=== PATIENT | female | born 1960 | race Two or more races ===

== ENCOUNTER → 2024-08-19 | Outpatient (CLI) | payer OTHER, SELFPAY ==
--- NOTE | 2024-08-19 09:29 | XR_ITS ---
Examination: Right knee 2 views TECHNIQUE: AP lateral right knee 2 views, standing Exam date and time: August 19, 2024 0952 hours indications: Right knee swelling and pain one month FINDINGS: Moderate osteopenia. No fracture or dislocation Mild tricompartment osteoarthritis No opaque foreign body no ossified joint bodies IMPRESSION: Mild tricompartment osteoarthritis
[2024-08-19 10:44] LABS: Basophils # (Auto) 0.1 Thou/mm3 (0.0-0.2); Basophils % (Auto) 1 % (0-2.5); Eosinophils # (Auto) 0.3 Thou/mm3 (0.0-0.5); Eosinophils % (Auto) 4 % (0-10); Hematocrit 40.7 % (36.0-46.0); Hemoglobin 13.4 g/dL (12.0-16.0); Immature Granulocytes % (Auto) 0 % (0-0); Immature Granulocytes Auto 0.01 Thou/mm3 (0.00-0.00); Lymphocytes % (Auto) 29 % (10-50); Mean Corpuscular HGB Conc 32.9 g/dl (31.0-37.0); Mean Corpuscular Hemoglobin 29.6 pg (25.0-35.0); Mean Corpuscular Volume 90 fL (80-100); Monocytes # (Auto) 0.4 Thou/mm3 (0.0-0.8); Monocytes % (Auto) 6 % (0-12); Neutrophils % (Auto) 60 % (37-80); Nucleated Red Blood Cell % 0 /100 WBC (0); Platelet Count 334 Thou/mm3 (140-440); RDW Standard Deviation 42.2 fL (36.4-46.3); Red Blood Count 4.52 Miln/mm3 (4.00-5.20); White Blood Count 6.7 Thou/mm3 (3.6-11.0)
[2024-08-19 11:00] LABS: Glucose Estimated Average 126 mg/dL (80-131)
[2024-08-19 11:03] LABS: Collection Type, Urine Clean Catch
[2024-08-19 11:14] LABS: Vitamin B12 694 pg/mL (211-911); Vitamin D 25 Hydroxy Total 66.6 ng/mL (7.3-40.2)
[2024-08-19 11:18] LABS: Alanine Aminotransferase 14 U/L (10-49); Albumin, Serum 4.4 gm/dL (3.4-4.8); Albumin/Globulin Ratio 1.9 (1.2-2.2); Alkaline Phosphatase 101 U/L (46-116); Anion Gap 7 (7-16); Aspartate Amino Transferase 15 U/L (0-34); BUN/Creatinine Ratio 17 Ratio (12-20); Bilirubin,Total 0.6 mg/dL (0.3-1.2); Blood Urea Nitrogen 12 mg/dL (9-23); Calcium 9.4 mg/dL (8.3-10.6); Calcium (Corrected) 9.4 mg/dL (8.5-10.1); Carbon Dioxide 29.8 mMol/L (20.0-31.0); Cardiac Risk Estimate 2.9 RATIO (3.7-5.6); Chloride 106 mMol/L (98-107); Cholesterol 194 mg/dL (132-200); Creatinine (Component) 0.7 mg/dL (0.6-1.3); Globulin 2.3 gm/dL (2.3-3.5); Glucose 124 mg/dL (74-106); HDL Cholesterol 68 mg/dL (40-60); LDL Cholesterol,Calculated 111 mg/dL (0-130); Osmolality,Calculated 285 (275-295); Potassium 4.3 mMol/L (3.4-5.1); Sodium 143 mMol/L (136-145); Thyroid Stimulating Hormone 0.86 uIU/mL (0.55-4.78); Total Protein 6.7 gm/dL (5.7-8.2); Triglycerides 76 mg/dL (30-150); eGFR > 60 See Note
[2024-08-19 11:42] LABS: Bilirubin,Urine Negative (Negative); Blood,Urine Negative (Negative); Clarity,Urine Clear (Clear/Hazy); Color,Urine Colorless (Lt Yel-Yel); Culture Indicated,Urine Not Indicated; Glucose, Urine Negative (Negative); Ketones,Urine Negative (Negative); Leukocyte Esterase,Urine Negative (Negative); Nitrite,Urine Negative (Negative); Protein,Urine Negative (Neg - Trace); RBC,Urine 2 /hpf (0-3); Specific Gravity,Urine 1.007 (1.001-1.035); Squamous Epithelial Cell,Urine < 1 /hpf (0-5); Urobilinogen,Urine Negative mg/dL (0.0-1.0); WBC,Urine < 1 /hpf (0-5)
[2024-08-19 11:44] LABS: Creatinine MALB Rnd Ur 28 mg/dL (30-125); Microalbumin, Random Urine < 3 mg/L (0-300)
== END | disposition home or self-care (01) ==
LOC: COPL 09:13
PROVIDERS: PCP Physician Assistant; Referring Provider Orthopaedic Surgery; Visit Provider Radiology Diagnostic Radiology
DX: M17.11 Unilateral primary osteoarthritis, right knee (principal); Z00.00 Encounter for general adult medical examination without abnormal findings; I10 Essential (primary) hypertension; E78.5 Hyperlipidemia, unspecified; E55.9 Vitamin D deficiency, unspecified; D51.9 Vitamin B12 deficiency anemia, unspecified; R73.01 Impaired fasting glucose
CPT/HCPCS: 36415; 73560; 80053; 80061; 81001; 82043; 82306; 82570; 82607; 83036; 84443; 85025

== ENCOUNTER → 2024-12-24 | Outpatient (CLI) | payer OTHER, SELFPAY ==
[2024-12-24 10:47] LABS: Glucose Estimated Average 126 mg/dL (80-131); Hemoglobin A1C 6.0 % Hgb (4.8-6.0)
[2024-12-24 11:04] LABS: Alanine Aminotransferase 18 U/L (10-49); Albumin, Serum 4.1 gm/dL (3.4-4.8); Albumin/Globulin Ratio 2.0 (1.2-2.2); Alkaline Phosphatase 102 U/L (46-116); Anion Gap 11 (7-16); Aspartate Amino Transferase 17 U/L (0-34); BUN/Creatinine Ratio 18 Ratio (12-20); Bilirubin,Total 0.6 mg/dL (0.3-1.2); Blood Urea Nitrogen 11 mg/dL (9-23); Calcium 10.0 mg/dL (8.3-10.6); Calcium (Corrected) 10.0 mg/dL (8.5-10.1); Carbon Dioxide 29.5 mMol/L (20.0-31.0); Cardiac Risk Estimate 2.7 RATIO (3.7-5.6); Chloride 103 mMol/L (98-107); Cholesterol 166 mg/dL (132-200); Creatinine (Component) 0.6 mg/dL (0.6-1.3); Globulin 2.1 gm/dL (2.3-3.5); Glucose 110 mg/dL (74-106); HDL Cholesterol 61 mg/dL (40-60); LDL Cholesterol,Calculated 85 mg/dL (0-130); Osmolality,Calculated 285 (275-295); Potassium 4.3 mMol/L (3.4-5.1); Sodium 143 mMol/L (136-145); Total Protein 6.2 gm/dL (5.7-8.2); Triglycerides 99 mg/dL (30-150); eGFR > 60 See Note
== END | disposition home or self-care (01) ==
LOC: COPL 09:24
PROVIDERS: PCP Family Medicine; Referring Provider Physician Assistant; Visit Provider Physician Assistant
DX: I10 Essential (primary) hypertension (principal); E78.5 Hyperlipidemia, unspecified; R73.01 Impaired fasting glucose
CPT/HCPCS: 36415; 80053; 80061; 83036

== ENCOUNTER → 2025-01-05 | Outpatient (CLI) | payer OTHER, SELFPAY ==
--- NOTE | 2025-01-05 11:45 | XR_ITS ---
Examination: Screening digital mammography, bilateral Computer aided detection 3-D breast Tomosynthesis, bilateral Date and time of exam: January 05, 2025 1144 hours, compared to mammograms dating to March 11, 2011 Indication: Screening Technique: Nonmagnified MLO, CC views of the breasts to been obtained, reconstructed from 3-D Tomosynthesis images. R2 computer aided detection program utilized for evaluation of suspicious masses and/or abnormal calcifications. 3-D Tomosynthesis images obtained. Findings: Scattered areas of bilateral granular density. 10 mm nodule retroareolar region right breast indistinct margins 4 mm nodule lower inner left breast mid depth Impression: BI-RADS Category 0: Incomplete: Need additional imaging evaluation. Recommend follow-up spot tomographic views 10 mm nodule retroareolar region right breast and 4 mm nodule lower inner left breast as well as bilateral breast sonography to complete the workup.
--- NOTE | 2025-01-05 12:00 | XR_ITS ---
Examination: Bone densitometry Date and time of exam:January 05, 2025 1211 hours INDICATIONS: Hysterectomy age 42 postmenopausal ankle fracture 7 years ago, steroid administration for asthma, personal history osteoporosis Technique: Lumbar spine and hip total bone mineralization values of an calculated. Peak reference and age match control results have been displayed. Findings: Lumbar spine total bone mineralization is0.725 gm/cm2. This is 2.9 standard deviations below peak reference. This is 1.2 standard deviations below age-matched controls. Hip total bone mineralization is 0.726 gm/cm2 This is 1.8 standard deviations below peak reference. This is 0.7 standard deviations below age-matched controls Impression: There is osteoporosis based on lumbar spine measurements. There is osteopenia based on hip measurements Lumbar mineralization is decreased 7.0% compared with September 29, 2012 Hip mineralization is decreased 3.3% compared with September 29, 2012
== END | disposition home or self-care (01) ==
LOC: CDIM 11:24
PROVIDERS: Referring Provider Physician Assistant; Visit Provider Physician Assistant
DX: Z12.31 Encounter for screening mammogram for malignant neoplasm of breast (principal); R92.8 Other abnormal and inconclusive findings on diagnostic imaging of breast; N63.41 Unspecified lump in right breast, subareolar; N63.24 Unspecified lump in the left breast, lower inner quadrant; M81.0 Age-related osteoporosis without current pathological fracture; M85.89 Other specified disorders of bone density and structure, multiple sites
CPT/HCPCS: 77063; 77067; 77080

== ENCOUNTER → 2025-02-07 | Outpatient (CLI) | payer OTHER, SELFPAY ==
--- NOTE | 2025-02-07 09:00 | XR_ITS ---
Examination: Breast ultrasound complete, bilateral Date and time of exam: February 07, 2025, 0927 hours INDICATIONS: Mammogram 01/06/2000 2510 mm nodule retroareolar region right breast indistinct margins, 4 mm nodule lower inner left breast mid depth Technique: Real-time grayscale ultrasonographic imaging bilateral breasts, including all 4 quadrants as well as nipple retroareolar and axillary regions. Findings: Sonographic images right breast Retroareolar nodule versus glandular tissue 12 x 810 x 14 mm, indistinct margins Sonographic images left breast 8:00 cyst 4 x 4 mm No solid nodules IMPRESSION: BI-RADS Category 0: Incomplete: Need additional imaging evaluation This patient should return for dedicated right breast sonography with a radiologist in attendance, specific attention to the retroareolar region right breast
--- NOTE | 2025-02-07 10:00 | XR_ITS ---
Examination: Diagnostic digital mammography, bilateral Computer aided detection 3-D breast Tomosynthesis, bilateral Date and time of exam: 02/07/2025, 9:56 a.m. Comparisons: February 2011 through December 2024 Indications: Further evaluation of abnormality seen on prior screening exam. Technique: Nonmagnified MLO, CC views of the breasts to been obtained, reconstructed from 3-D Tomosynthesis images. R2 computer aided detection program utilized for evaluation of suspicious masses and/or abnormal calcifications. 3-D Tomosynthesis images obtained. Findings: There are scattered areas of fibroglandular density. No evidence of abnormal masses or suspicious calcifications.The previously described abnormalities do not persist on spot compression views and represents superposition of normal fibroglandular tissue. Impression: BI-RADS category 1: Negative findings (within normal) Recommend 1 year follow-up mammogram
== END | disposition home or self-care (01) ==
LOC: CDIM 09:06
PROVIDERS: Referring Provider Physician Assistant; Visit Provider Physician Assistant
DX: R92.313 Mammographic fatty tissue density, bilateral breasts (principal); R92.8 Other abnormal and inconclusive findings on diagnostic imaging of breast
CPT/HCPCS: 76641; 77062; 77066; G0279

== ENCOUNTER 2025-04-14 00:52 | Emergency (ER) | payer OTHER, SELFPAY ==
[2025-04-14 00:53] VITALS: BMI 35.2
[2025-04-14 01:01] VITALS: BP 158/119; PULSE 81; RESP 18; TEMP 37.2; O2SAT 95
--- NOTE | 2025-04-14 01:15 | XR_ITS ---
EXAMINATION: AP lateral soft tissue neck 2 views TECHNIQUE: AP lateral soft tissue neck 2 views Date and time: April 14, 2025, 0116 hours INDICATIONS: 2 days of worsening throat swelling and difficulty swallowing FINDINGS: Epiglottis is not thickened. No distention hypopharynx No opaque foreign body. Satisfactory alignment of cervical vertebral bodies IMPRESSION: Normal epiglottis No opaque foreign body Consider follow-up standard fluoroscopically-guided esophagram
--- NOTE | 2025-04-14 01:21 | PD.EDNV ---
Nausea/Vomit./Diarrhea-RME/HPI General Chief complaint: Allergic Reaction Stated complaint: THROAT SWELLING SINCE 1100 Time Seen by Provider: 04/14/25 01:13 Arrival date/time: 04/14/25 00:52 65F with history of HTN and esophageal strictures (s/p dilations) presents to ED with several days of worsening throat swelling and difficulty swallowing. Patient denies rash, itching, and pain. Limitations: no limitations Related Data Home Medications ?Medication ?Instructions ?Recorded ?Confirmed albuterol sulfate 90 mcg/actuation 2 puff inhalation Q4HR PRN Wheezing 11/19/22 11/19/22 aerosol inhaler fluticasone furoate 200 1 inh inhalation QDAY 11/19/22 11/19/22 mcg-vilanterol 25 mcg/dose inhalation powder irbesartan 150 mg tablet 150 mg PO DAILY 11/19/22 11/19/22 Allergies Allergy/AdvReac Type Severity Reaction Status Date / Time aspirin Allergy Severe Swelling Verified 04/14/25 00:53 of Lip/Tongue/Throat latex Allergy Intermediate Rash Verified 04/14/25 00:53 Milk Containing Products Allergy Intermediate Swelling Verified 04/14/25 00:53 (Dairy) of Lip/Tongue/Throat Penicillins Allergy Intermediate Gastrointestinal Verified 04/14/25 00:53 Upset Review of Systems Review of Systems Systems Reviewed: All systems reviewed, normal except as documented ENT Ears, Nose, Mouth, and Throat: Reports as per HPI, Reports throat swelling and Reports other (difficulty swallowing) Allergic/Immunologic Allergic/Immunologic: Reports throat swelling Past Medical History Past Medical History NEUROLOGIC: Positive Neurological Disorders and Transient Ischemic Attacks (TIA) (2019 - MEMORY PROBLEMS); Negative Seizures CARDIAC: Positive Cardiac Disorders, Heart Murmur and Hypertension; Negative Congestive Heart Failure RESPIRATORY: Positive Asthma; Negative Chronic Obstructive Pulmonary Disease (COPD) GASTROINTESTINAL: Positive Gastrointestinal Disorders (FATTY LIVER, ABDOMINAL PAIN, HARTBURN) GENITOURINARY: Negative Genitourinary Disorders or Renal Disease MUSCULOSKELETAL: Positive Musculoskeletal Disorders, Arthritis and Osteoporosis ENDOCRINE: Negative Endocrine Disorders, Diabetes Mellitus Type 1 or Diabetes Mellitus Type 2 HEMATOLOGIC: Positive Anemia PSYCHO/SOCIAL: Positive Depression and Anxiety OTHER HISTORY: Positive Cancer; Negative Autoimmune Disease, Blood Transfusions, Anesthesia Reactions, Chicken Pox, Measles or Mumps Surgical History SURGICAL: Positive Hysterectomy and Section Social History SMOKING STATUS: Never smoker ED Exam General Limitations: Present no limitations General appearance: Present alert and in no apparent distress Head Head exam: Present atraumatic ENT ENT exam: Present normal exam, normal oropharynx and mucous membranes moist Neck Neck exam: Present normal inspection, full ROM and trachea midline Chest Chest inspection: Present normal inspection and symmetric chest wall rise Neurological Exam Neurological exam: Present alert and oriented X3 Psychiatric Psychiatric exam: Present normal affect and normal mood Skin Skin exam: Present warm, dry, intact and normal color Course Quality Measures none Orders Category Date Time Status Blood glucose [Bedside Blood Glucose] NOW Care 04/14/25 01:14 Active XR soft tissue neck Stat Exams 04/14/25 01:15 Taken Glucagon Inj Med 04/14/25 01:15 Discontinued 1 mg IM X1 ONE Metoclopramide Inj [Reglan Inj] Med 04/14/25 01:15 Discontinued 10 mg IM X1 ONE Vital Signs Vital signs: Vital Signs Temperature 98.9 F 04/14/25 01:01 Pulse Rate 81 04/14/25 01:01 Respiratory Rate 18 04/14/25 01:01 Blood Pressure 158/119 H 04/14/25 01:01 Pulse Oximetry (%) 95 04/14/25 01:01 Oxygen Delivery Method Room Air 04/14/25 01:01 O2 at 95% on RA and WNLs Nausea/Vomiting/Diarrhea MDM Narrative MDM Narrative:: 65F with history of HTN and esophageal strictures (s/p dilations) presents to ED with several days of worsening throat swelling and difficulty swallowing. Patient denies rash, itching, and pain. Physical exam reveals clear oropharynx. Speech is normal. Patient is afebrile, calm, and alert. Patient initially failed PO challenge and there was a lot of pain with swallowing and spitting up. Patient AMA'd. Patient data External records reviewed:: [facility] previous records Clinical information provided by:: patient Social determinants that could affect healthcare access:: none Patient has the following chronic illnesses:: HTN and esophageal strictures (s/p dilations) How is presenting disease/condition affected by chronic disease/condition?: exacerbated by Evaluation data The following diagnostics were reviewed and interpreted by me:: lab results and radiology exam(s) Lab and/or radiology exams considered but not ordered:: ordered Interpretation Summary: above Medications / Prescriptions Medications / Prescriptions considered but not ordered:: ordered Medication administrations:: Medication Administration History Discontinued Medications Glucagon (Glucagon Inj 1 Mg Vial) 1 mg IM X1 ONE Stop: 04/14/25 01:16 Last Admin: 04/14/25 02:50 Dose: Not Given Documented By: LINDA Non-Admin Reason: Patient Refused Metoclopramide HCl (Metoclopramide Inj 5 Mg/Ml Vial 2 Ml) 10 mg IM X1 ONE; Protocol Stop: 04/14/25 01:16 Last Admin: 04/14/25 02:50 Dose: Not Given Documented By: LINDA Non-Admin Reason: Patient Refused above Consultations Consultation(s) initiated? (list below): No Diagnosis Nausea Differential Diagnosis: traveler's diarrhea, food poisoning, gastroenteritis, clostridium difficile infection, drug-induced nausea and vomiting, dehydration and other (esophageal strictures, food bolus in esophagus, difficulty swallowing) Most likely diagnosis given after review of the tests above:: difficulty swallowing Admission Indicated Admission indicated?: not indicated Admission Request Was there a request for admission?: No Disposition Plan Disposition Plan: other (specify) (AMA'd) Discharge Plan Plan Patient Disposition: Left Against Medical Advice Prescriptions/Referrals Prescriptions/Med Rec: No Action irbesartan 150 mg tablet 150 mg PO DAILY Patient Comments: TAKE 1 TABLET BY MOUTH EVERY DAY albuterol sulfate 90 mcg/actuation HFA aerosol inhaler 2 puff INHALATION Q4HR PRN (Reason: Wheezing) Patient Comments: INHALE 2 PUFFS BY MOUTH EVERY 4 HOURS NEEDED FOR 30 DAYS fluticasone furoate-vilanterol 200-25 mcg/dose Blister With Device 1 inh INHALATION QDAY Problem List Clinical Impression: Difficulty swallowing Patient/Caregiver Discharge Instructions Print Language: Luxembourgish BRANDEE/ROQUE Supervising Physician BRANDEE/ROQUE Supervising Physician: Dr. Larsen
--- NOTE | 2025-04-14 02:08 | PRELIM_ITS ---
Radiographs of the soft tissue neck (2 views). April 14, 2025 0116 hours Clinical history: Rule out FB Comparison: None Findings: No foreign body is seen. Prevertebral soft tissues, epiglottis, and trachea are unremarkable. Impression: Normal examination. Report Electronically Signed By: Arturo Saha 04/14/2025 2:07:41 AM [EST]
--- NOTE | 2025-04-14 03:13 | PC.NURSE ---
AON DISCHARGE, PT IN NO DISTRESS. GCS 15. A&O X 4
== END 2025-04-14 02:50 | disposition left against medical advice (07) ==
LOC: SERX 03:44
PROVIDERS: Emergency Provider Emergency Medicine; PCP Family Medicine
DX: R13.10 Dysphagia, unspecified (principal)
CPT/HCPCS: 70360; 99282

== ENCOUNTER 2025-04-15 08:20 | Observation (INO) | payer OTHER, SELFPAY ==
[2025-04-15] VITALS (19 sets, daily range): BP systolic 123–224; BP diastolic 58–116; PULSE 75–88; RESP 12–20; TEMP 36.3–37.2; O2SAT 92–100; BMI 34.4
--- NOTE | 2025-04-15 08:51 | EKG_ITS ---
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
--- NOTE | 2025-04-15 08:53 | PD.EDRME ---
Rapid Medical Screening Exam E Arrival date/time: 04/15/25 08:20 This is a 65-year-old female that comes into the emergency room with complaints of foreign body stuck in the back of her throat. Patient thinks it is a vitamin D pill patient states she was here few days ago with the same complaints. Patient was given glucagon and Reglan and symptoms did not get better. Patient was sent home per patient. Patient states that she sees Dr. Loza and he told patient to come to the emergency room for possible admission to explore foreign body in throat. Patient states he used to get her esophagus dilated but has not had that done in about 6 years. Patient states she is has not been able to swallow her medications and also drink water. Patient states seconds after she swallows anything she vomits. I have greeted and performed a focused initial assessment of this patient. Initial appropriate labs ordered at this time. A comprehensive ED assessment and evaluation of the patient and analysis of all test and completion of medical decision making process will be conducted by additional ED provider. Chief Complaint: General Adult/Misc Complain Time Seen by Provider: 04/15/25 08:28 Vital signs: Vital Signs Temperature 98.9 F 04/15/25 08:40 Pulse Rate 88 04/15/25 08:40 Respiratory Rate 17 04/15/25 08:40 Blood Pressure 211/98 H 04/15/25 08:40 Pulse Oximetry (%) 94 L 04/15/25 08:40 Oxygen Delivery Method Room Air 04/15/25 08:40 Exam: Alert and oriented, breathing even and unlabored, skin warm and dry Clinical Impression: Foreign body throat, hypertension
[2025-04-15 09:22] LABS: Basophils # (Auto) 0.1 Thou/mm3 (0.0-0.2); Basophils % (Auto) 1 % (0-2.5); Eosinophils # (Auto) 0.2 Thou/mm3 (0.0-0.5); Eosinophils % (Auto) 2 % (0-10); Hematocrit 43.4 % (36.0-46.0); Hemoglobin 13.7 g/dL (12.0-16.0); Immature Granulocytes Auto 0.03 Thou/mm3 (0.00-0.00); Lymphocytes # (Auto) 2.2 Thou/mm3 (1.0-4.8); Lymphocytes % (Auto) 21 % (10-50); Mean Corpuscular HGB Conc 31.6 g/dl (31.0-37.0); Mean Corpuscular Hemoglobin 28.5 pg (25.0-35.0); Mean Corpuscular Volume 90 fL (80-100); Monocytes # (Auto) 0.6 Thou/mm3 (0.0-0.8); Monocytes % (Auto) 5 % (0-12); Neutrophils # (Auto) 7.2 Thou/mm3 (1.8-7.7); Neutrophils % (Auto) 71 % (37-80); Nucleated Red Blood Cell # 0.00 Thou/mm3 (0.00-0.00); Nucleated Red Blood Cell % 0 /100 WBC (0); Platelet Count 361 Thou/mm3 (140-440); RDW Standard Deviation 44.7 fL (36.4-46.3); Red Blood Count 4.80 Miln/mm3 (4.00-5.20); White Blood Count 10.2 Thou/mm3 (3.6-11.0)
[2025-04-15 09:33] LABS: Alanine Aminotransferase 18 U/L (10-49); Albumin, Serum 5.1 gm/dL (3.4-4.8); Albumin/Globulin Ratio 1.8 (1.2-2.2); Alkaline Phosphatase 107 U/L (46-116); Anion Gap 12 (7-16); Aspartate Amino Transferase 22 U/L (0-34); B-Type Natriuretic Peptide 27 pg/mL (0-100); BUN/Creatinine Ratio 27 Ratio (12-20); Bilirubin,Total 0.8 mg/dL (0.3-1.2); Blood Urea Nitrogen 19 mg/dL (9-23); Calcium 9.9 mg/dL (8.3-10.6); Calcium (Corrected) 9.9 mg/dL (8.5-10.1); Carbon Dioxide 29.9 mMol/L (20.0-31.0); Chloride 109 mMol/L (98-107); Creatinine (Component) 0.7 mg/dL (0.6-1.3); Estimated Creatinine Clearance 76.0 mL/min (>60); Globulin 2.9 gm/dL (2.3-3.5); Glucose 112 mg/dL (74-106); Osmolality,Calculated 303 (275-295); Potassium 4.2 mMol/L (3.4-5.1); Sodium 151 mMol/L (136-145); Total Protein 8.0 gm/dL (5.7-8.2); Troponin I 0.021 ng/mL (0.0-0.045); eGFR > 60 See Note
--- NOTE | 2025-04-15 11:49 | PD.EDADULT ---
ED General RME/HPI General Chief complaint: General Adult/Misc Complain Stated complaint: SENT BY MICHELLE FOR ESOPHAGEAL OBSTRUCTION, NEED EGD Time Seen by Provider: 04/15/25 08:28 Arrival date/time: 04/15/25 08:20 65-year-old female patient came in for evaluation regarding inability to swallow. Patient was eating boiled egg 2 days ago, and since then patient is unable to swallow even liquid. Patient's [address] Loza, yesterday and was advised to come today for EGD. Patient is unable to drink his blood pressure medication due to inability to swallow. Patient's blood pressure was noted to be elevated 203/116. Patient is denying any chest pain denies any headache. Patient's last p.o. intake including liquid was more than 48 hours ago. RME / HPI RME / HPI narrative: 04/15/25 08:20 This is a 65-year-old female that comes into the emergency room with complaints of foreign body stuck in the back of her throat. Patient thinks it is a vitamin D pill patient states she was here few days ago with the same complaints. Patient was given glucagon and Reglan and symptoms did not get better. Patient was sent home per patient. Patient states that she sees Dr. Loza and he told patient to come to the emergency room for possible admission to explore foreign body in throat. Patient states he used to get her esophagus dilated but has not had that done in about 6 years. Patient states she is has not been able to swallow her medications and also drink water. Patient states seconds after she swallows anything she vomits. I have greeted and performed a focused initial assessment of this patient. Initial appropriate labs ordered at this time. A comprehensive ED assessment and evaluation of the patient and analysis of all test and completion of medical decision making process will be conducted by additional ED provider. Exam: Alert and oriented, breathing even and unlabored, skin warm and dry Impression: Foreign body throat, hypertension Related Data Home Medications ?Medication ?Instructions ?Recorded ?Confirmed albuterol sulfate 90 mcg/actuation 2 puff inhalation Q4HR PRN Wheezing 11/19/22 11/19/22 aerosol inhaler fluticasone furoate 200 1 inh inhalation QDAY 11/19/22 11/19/22 mcg-vilanterol 25 mcg/dose inhalation powder irbesartan 150 mg tablet 150 mg PO DAILY 11/19/22 11/19/22 Allergies Allergy/AdvReac Type Severity Reaction Status Date / Time aspirin Allergy Severe Swelling Verified 04/15/25 08:24 of Lip/Tongue/Throat epinephrine Allergy Severe Swelling Verified 04/15/25 08:24 of Lip/Tongue/Throat latex Allergy Intermediate Rash Verified 04/15/25 08:24 Milk Containing Products Allergy Intermediate Swelling Verified 04/15/25 08:24 (Dairy) of Lip/Tongue/Throat Penicillins Allergy Intermediate Gastrointestinal Verified 04/15/25 08:24 Upset Review of Systems Review of Systems Narrative Review of Systems: Review of system reviewed and within normal limits except mentioned in HPI ED Exam Narrative Physical exam: VITAL SIGNS: Reviewed. GENERAL APPEARANCE: Alert and interactive, follows commands, no acute distress, HEAD AND FACE: Non-traumatic. ENT: PERRL, pink conjunctivitis, eyelid no trauma, Mucous membrane moist. NECK: Supple, nontender, no nuchal rigidity. CHEST: No tenderness, no crepitus, no paradoxical movement, no retractions. LUNGS: Clear, well ventilated, symmetric, no rales, no wheezing, no ronchi, no stridor, good breath sounds bilaterally. HEART: Regular rate, regular rhythm, no murmur, no gallops. ABDOMEN: Soft, positive bowel sounds, nondistended, no guarding, nontender, no rebound, no masses, RECTAL: Deferred. GENITAL: Deferred. NEUROLOGICAL: Gross motor function intact sensory function intact, Appropriate for age. MUSCULOSKELETAL: low back nontender, full range of motion. EXTREMITIES: Nontender, full range of motion. SKIN: Color pink, dry, no rash, no lacerations, no abrasions, no contusions. LYMPHATICS: Deferred. Course Quality Measures none Orders Category Date Time Status EKG (ED ONLY) *Do not use* NOW Care 04/15/25 08:51 Completed NPO NOW Care 04/15/25 11:45 Active Consult to Gastroenterology Stat Cons 04/15/25 11:45 Ordered Diet NPO (NOW) Diet 04/15/25 11:45 Active EKG (ED Only) Stat Exams 04/15/25 08:51 Draft BNP [B-Type Natriuretic Peptide] Stat Lab 04/15/25 09:03 Completed CBC Stat Lab 04/15/25 09:03 Completed Comprehensive Metabolic Panel Stat Lab 04/15/25 09:03 Completed Troponin I Stat Lab 04/15/25 09:03 Completed Ringers Lactated 1000 ml [Lactated Ringers] 1,000 ml Med 04/15/25 11:44 Active IV 999 mls/hr hydrALAZINE INJ [Apresoline Inj] Med 04/15/25 11:46 Discontinued 10 mg IVP X1 ONE Vital Signs Vital signs: Vital Signs Temperature 98.9 F 04/15/25 08:40 Pulse Rate 88 04/15/25 08:40 Respiratory Rate 17 04/15/25 08:40 Blood Pressure 211/98 H 04/15/25 08:40 Pulse Oximetry (%) 94 L 04/15/25 08:40 Oxygen Delivery Method Room Air 04/15/25 08:40 Discharge Plan Plan Patient Disposition: Admit Acute Care w/in Hospital Prescriptions/Referrals Prescriptions/Med Rec: No Action irbesartan 150 mg tablet 150 mg PO DAILY Patient Comments: TAKE 1 TABLET BY MOUTH EVERY DAY albuterol sulfate 90 mcg/actuation HFA aerosol inhaler 2 puff INHALATION Q4HR PRN (Reason: Wheezing) Patient Comments: INHALE 2 PUFFS BY MOUTH EVERY 4 HOURS NEEDED FOR 30 DAYS fluticasone furoate-vilanterol 200-25 mcg/dose Blister With Device 1 inh INHALATION QDAY Referrals: Carolina Gutierrez PA-C [Primary Care Provider] - In 1 week Problem List Clinical Impression: Inability to swallow Patient/Caregiver Discharge Instructions Print Language: Liberian Stand Alone Forms: [employer] Award Info., Patient Portal Info Letter MDM Narrative MDM hospital course (for use when minimal MDM required): 65-year-old female patient came in for evaluation regarding inability to swallow. Patient was eating boiled egg 2 days ago, and since then patient is unable to swallow even liquid. Patient's [address] Loza, yesterday and was advised to come today for EGD. Patient is unable to drink his blood pressure medication due to inability to swallow. Patient's blood pressure was noted to be elevated 203/116. Patient is denying any chest pain denies any headache. Patient's last p.o. intake including liquid was more than 48 hours ago. Laboratory workup came back unremarkable except for slightly elevated BUN. Patient received IV fluids and IV hydralazine. Spoke with GI specialist, Dr. Loza, who told me to keep the patient n.p.o., he will scope the patient. Spoke with hospitalist, who admitted the patient Medication Administration(s) Medication Administration History Lactated Ringer's (Lactated Ringers) 1,000 mls @ 999 mls/hr IV .Q1H1M ONE Stop: 04/15/25 12:44 Discontinued Medications Hydralazine HCl (Hydralazine Inj 20 Mg/Ml Vial) 10 mg IVP X1 ONE Stop: 04/15/25 11:47 See above Consultations/Discussions re: Management Consult #1: Date/time: 04/15/25 11:55 am Physician, specialty, service, details: Dr. Loza GI specialist on-call thank you DrSrinivas Diagnosis Differential Diagnosis ED Complaint MDM: Food stuck in esophagus, inability to swallow, esophageal constriction Diagnoses ruled out and/or further discussions: Inability to swallow
[2025-04-15] MEDS: RINGERS LACTATED 1000 ML 1,000 ML 999 ML IV ×2 (12:15→13:08)
[2025-04-15] MEDS: hydrALAZINE INJ 20 MG/ML VIAL 10 MG IVP (12:15)
--- NOTE | 2025-04-15 13:28 | PD.EDADDENDU ---
Emergency Room Addendum Addendum Narrative: The nurse called me for reevaluation since patient is complaining of periorbital swelling, the face feels swollen and tongue felt swollen. Patient is denying any rashes. Denies any shortness of breath. No other complaints noted. Patient was given Benadryl Solu-Medrol and Pepcid IV. On reevaluation patient's symptoms is completely gone.
[2025-04-15] MEDS: FAMOTIDINE INJ 10 MG/ML VIAL 2 ML 20 MG IVP (13:52)
[2025-04-15] MEDS: MethylPREDNISolone SOD SUCC 62.5 MG/ML 2ML VIAL 125 MG IVP (13:52)
--- NOTE | 2025-04-15 14:18 | ESHP_ITS ---
<Statement entered by Douglas Boles MD - 04/15/25 23:19> I saw and examined patient personally and supervised PGY 1 resident, Dr. Wray with formulating a management plan. I agree with the documentation with the exceptions as listed below. Patient was eating a boiled egg on 04/13 after which he began to experience a sensation of food stuck in her throat and dysphagia to both solids and liquids. Patient has been unable to tolerate anything p.o. for the past 48 hours along with her blood pressure medication. Scheduled for EGD tonight with gastroenterology, Dr. Loza. Plan of care discussed with Attending Dr. Alejandra Boles MD PGY 2 Disclaimer: This note was dictated by speech recognition. Minor errors in aircraft worker may be present due to voice recognition software. Documentation for date of: 04/15/25 HPI History of Present Illness Chief complaint: dysphagia History of present illness: Silvia Grider 65F pmhx significant for HTN, hx of TIA, hiatial hernia and asthma who presents with 2 days of difficulty swallowing. Patient reports that on 04/13 ate a boiled egg and a vitamin D pill and felt as if the pill was stuck in her throat. Unable to tolerate water or pills after that, and has not taken irbesartan for the past two days. Has had esophageal strictures in the past; dilated twice last by Dr. Freeman 7-8 years ago however current symptoms are different from prior. Patient has previously seen Dr. Loza who did a EGD and colonoscopy in 2022 where esophageal ring was broken down (note that patient refused esophageal dilatation with balloon that was needed). Patient denies chest pain, shortness of breath, fever/chills, nausea/vomiting or recent travel or illness. Noted that on exam, patient expressed tremulousness, throat swelling and eye swelling. Patient did receive labetalol, hydralazine and LR. Possible allergy to hydralazine versus labetalol likely former. PMHx: as above Surgical Hx: 1985, total hysterectomy for beginning of endometrial carcinoma 2002 FHx: Uncle passed at age 30 from heart attack, hypertension, type 2 diabetes, father of stroke at age 56. Social Hx: Denies alcohol, tobacco or recreational/illicit drug use Allergies: Epinephrine, swelling of lips and tongue. Aspirin: Lip swelling. Hydralazine lip swelling. Penicillin GI upset. Medications: Irbesartan 150 mg daily, albuterol rescue, Ellipta QOD. In ED, BP 211/98 HR 88 RR 17 afebrile satting 94% RA, significant labs include sodium 151, osmolarity 303. EKG sinus rhythm. Soft tissue neck XR on 04/14 shows no foreign body. In ED, given hydralazine and labetalol and LR 2L. GI consulted. Patient was admitted for dysphagia and pending EGD. Review of Systems Review of Systems Systems Reviewed: All systems reviewed, normal except as documented Exam Vital Signs Temp Pulse Resp BP Pulse Ox O2 Del Method 98.9 F 85 17 224/111 H 94 L Room Air 04/15/25 08:40 04/15/25 12:15 04/15/25 08:40 04/15/25 12:15 04/15/25 08:40 04/15/25 08:40 Narrative Exam GENERAL: AOx3, no acute distress, flushed, tremulous HEENT: mucous membranes moist, bilateral sclera anicteric CARDIOVASCULAR: regular rate and rhythm, S1/S2 present, 2/6 murmur PULMONARY: clear to auscultation bilaterally, no rales/rhonchi/wheezes ABDOMINAL: soft, non-distended, no rebound/guarding, bowel sounds present, mild epigastric tenderness EXTREMITIES: no peripheral edema SKIN: warm and dry, intact, no rashes NEURO: CN II-XII grossly intact, no focal deficits, alert, following commands Results: Labs 04/16/25 04:30 04/16/25 04:30 Labs: Short CBC 04/15/25 Range/Units 09:03 WBC 10.2 (3.6-11.0) Thou/mm3 Hgb 13.7 (12.0-16.0) g/dL Hct 43.4 (36.0-46.0) % Plt Count 361 (140-440) Thou/mm3 BMP 04/15/25 09:03 Sodium 151 H Potassium 4.2 Chloride 109 H Carbon Dioxide 29.9 BUN 19 Creatinine 0.7 Glucose 112 H Calcium 9.9 Cardiac Enzymes 04/15/25 Range/Units 09:03 Troponin I 0.021 (0.0-0.045) ng/mL Liver Function 04/15/25 Range/Units 09:03 Total Bilirubin 0.8 (0.3-1.2) mg/dL AST 22 (0-34) U/L ALT 18 (10-49) U/L Alkaline Phosphatase 107 (46-116) U/L Albumin 5.1 H (3.4-4.8) gm/dL Quality Measures Quality Measures VTE prophylaxis Medications Home Medications and Allergies Home Medications ?Medication ?Instructions ?Recorded ?Confirmed ?Type albuterol sulfate 90 mcg/actuation 2 puff inhalation Q 4HR PRN Wheezing 11/19/22 04/15/25 History aerosol inhaler fluticasone furoate 200 1 inh inhalation QDAY 04/15/25 History mcg-vilanterol 25 mcg/dose inhalation powder irbesartan 150 mg tablet 150 mg PO DAILY 11/19/22 History Allergies Allergy/AdvReac Type Severity Reaction Status Date / Time aspirin Allergy Severe Swelling Verified 04/15/25 17:03 of Lip/Tongue/Throat epinephrine Allergy Severe Swelling Verified 04/15/25 17:03 of Lip/Tongue/Throat latex Allergy Intermediate Rash Verified 04/15/25 17:03 Milk Containing Products Allergy Intermediate Swelling Verified 04/15/25 17:03 (Dairy) of Lip/Tongue/Throat Penicillins Allergy Intermediate Gastrointestinal Verified 04/15/25 17:03 Upset hydralazine Allergy Mild Swelling Verified 04/15/25 17:03 of Lip/Tongue/Throat Visit Medications Acetaminophen (Acetaminophen 325 Mg Tablet) 650 mg PO Q6H PRN PRN Reason: Fever>101.5,headache,mild pain Stop: 05/15/25 13:33 Acetaminophen (Acetaminophen Supp 650 Mg Supp) 650 mg IL Q6HR PRN; Protocol PRN Reason: FEVER>101.5 Stop: 05/15/25 13:33 Heparin Sodium (Porcine) (Heparin Sod Inj 5000 Unit/Ml Vial) 5,000 unit SC Q8HR JAMES Stop: 04/29/25 13:59 Lactated Ringer's (Lactated Ringers) 1,000 mls @ 75 mls/hr IV .[id number] JAMES Stop: 05/15/25 13:44 Labetalol HCl (Labetalol Inj 5 Mg/Ml Vial 4 Ml) 10 mg IVP Q6HR PRN PRN Reason: SBP>180, DBP>110 Stop: 05/15/25 18:59 Morphine Sulfate (Morphine Sulf Inj 4 Mg/Ml Vial) 1 mg IVP Q2H PRN PRN Reason: Pain Scale 5-10 Stop: 04/20/25 13:33 Ondansetron HCl (Ondansetron Inj 2 Mg/Ml Inj 2 Ml) 4 mg IVP Q6H PRN; Protocol PRN Reason: NAUSEA OR VOMITING Stop: 05/15/25 13:33 Discontinued Medications Diphenhydramine HCl (Diphenhydramine Inj 50 Mg/Ml Vial) 25 mg IVP X1 ONE Stop: 04/15/25 13:29 Last Admin: 04/15/25 13:52 Dose: 25 mg Famotidine (Famotidine Inj 10 Mg/Ml Vial 2 Ml) 20 mg IVP X1 ONE Stop: 04/15/25 13:29 Last Admin: 04/15/25 13:52 Dose: 20 mg Hydralazine HCl (Hydralazine Inj 20 Mg/Ml Vial) 10 mg IVP X1 ONE Stop: 04/15/25 11:47 Last Admin: 04/15/25 12:15 Dose: 10 mg Lactated Ringer's (Lactated Ringers) 1,000 mls @ 999 mls/hr IV .Q1H1M ONE Stop: 04/15/25 12:44 Last Admin: 04/15/25 12:15 Dose: 999 mls/hr Lactated Ringer's (Lactated Ringers) 1,000 mls @ 999 mls/hr IV .Q1H1M ONE Stop: 04/15/25 14:02 Last Admin: 04/15/25 13:08 Dose: 999 mls/hr Labetalol HCl (Labetalol Inj 5 Mg/Ml Vial 4 Ml) 10 mg IVP X1 ONE Stop: 04/15/25 13:03 Last Admin: 04/15/25 13:08 Dose: 10 mg Methylprednisolone Sodium Succinate (Methylprednisolone Sod Succ 62.5 Mg/Ml 2ml Vial) 125 mg IVP X1 ONE Stop: 04/15/25 13:29 Last Admin: 04/15/25 13:52 Dose: 125 mg Assessment & Plan Plan Silvia Grider 65F pmhx significant for HTN, hx of TIA, hiatial hernia and asthma who presents with 2 days of difficulty swallowing, admitted for dysphagia likely 2/2 esophageal stricture. #Dysphagia #?Foreign body #Hiatial hernia #Hx of esophageal strictures s/p dilatation x2 (last ~2017) #Hx of esophageal ring s/p broken down 2022 Ddx: hiatial hernia, esophageal stricture, foreign body Presents with 2 days of difficulty swallowing following eating a boiled egg and her vitamin D pill. Endorses unable to tolerate p.o. following, has not taken medications or eaten for the past 2 days. Has had strictures in the past status post dilation last being in about 2017. Had EGD done 2022 esophageal ring found by Dr. Loza broken down and at the time did need esophageal stricture dilatation however patient refused prior to procedure. Plan: - GI consulted, recs appreciated - NPO #HTN urgency #Hx of HTN BP on admission 211/98. Has not taken irbesartan for the past 2 days due to difficulty swallowing. Usually BP max at home 160 SBP. Plan: - On admission SBP 200s, following labetalol and hydralazine patient experienced flushing and eye and throat swelling. Will avoid further IV prn until GI consult and will resume PO irbesartan. Given adequate reduction of SBP by 25% as SBP >200, will hold off on further IV medication. #Asthma Plan: - Duoneb prn - Patient instructed to bring home Ellipta to resume inpatient - Supplemental O2 as needed Hospital management: Lines: PIV Diet: NPO Bowel: Senna prn GI prophylaxis: IV pantop 40 QD DVT prophylaxis: heparin 5000u q8h Disposition: med surg, pending GI eval CODE STATUS: DNR Plan of care discussed with attending Dr. Roberts, and PGY-2 Dr. Boles. Radha Wray, DO PGY-1 Internal Medicine Attending Provider Attestation/Addendum I have seen and examined the patient. I was physically present for the jean portions of the services provided including history, physical exam, diagnosis, treatment plans and orders. I agree with assessment and plan of care as documented by residents. After examination of the patient and review of the clinical data I feel that this patient needs observation in the hospital for further treatment/evaluation. Even though this note was carefully revised there may still be minor errors in aircraft worker due to voice recognition software. Ranjeet Roberts MD
--- NOTE | 2025-04-15 14:49 | PD.IMCONS ---
HPI Data of Consult Requesting Physician: Ranjeet Roberts MD Primary Care Provider: Carolina Gutierrez PA-C Consult Narrative Reason for consult: Foreign body obstruction esophagus, dysphagia History of present illness: 65 years old female came into the emergency room with a foreign body sensation not able to swallow any water when she drinks water she was throwing up She was eating avocado and egg and since yesterday she has felt like this She does have a history of dysphagia in the past and had breaking down of the GE junction ring previously on endoscopy in 2022 She is scared of having an upper endoscopy because her daughter had an endoscopic dilatation at [facility] and she had a rupture of the esophagus cc:: cc: Ranjeet Roberts MD Review of Systems Review of Systems Systems Reviewed: All systems reviewed, normal except as documented Past Medical History Surgical History OTHER SURGICAL HX: Essential hypertension Bronchial asthma/COPD Meds Home Medications and Allergies Home Medications ?Medication ?Instructions ?Recorded ?Confirmed ?Type albuterol sulfate 90 mcg/actuation 2 puff inhalation Q4HR PRN Wheezing 11/19/22 11/19/22 History aerosol inhaler fluticasone furoate 200 1 inh inhalation QDAY 11/19/22 11/19/22 History mcg-vilanterol 25 mcg/dose inhalation powder irbesartan 150 mg tablet 150 mg PO DAILY 11/19/22 11/19/22 History Allergies Allergy/AdvReac Type Severity Reaction Status Date / Time aspirin Allergy Severe Swelling Verified 04/15/25 17:03 of Lip/Tongue/Throat epinephrine Allergy Severe Swelling Verified 04/15/25 17:03 of Lip/Tongue/Throat latex Allergy Intermediate Rash Verified 04/15/25 17:03 Milk Containing Products Allergy Intermediate Swelling Verified 04/15/25 17:03 (Dairy) of Lip/Tongue/Throat Penicillins Allergy Intermediate Gastrointestinal Verified 04/15/25 17:03 Upset hydralazine Allergy Mild Swelling Verified 04/15/25 17:03 of Lip/Tongue/Throat Exam Vital Signs Temp Pulse Resp BP Pulse Ox O2 Del Method 98.9 F 81 12 165/82 H 97 Room Air 04/15/25 14:23 04/15/25 14:46 04/15/25 14:46 04/15/25 14:46 04/15/25 14:46 04/15/25 14:46 Constitutional Comments: Alert oriented celebrating appears to have a foreign body obstruction type of symptoms Routine Respiratory Exam Comments: Normal to auscultation Routine Abdominal Exam Comments: Soft nontender Results Labs 04/15/25 09:03 04/15/25 09:03 Labs: Short CBC 04/15/25 Range/Units 09:03 WBC 10.2 (3.6-11.0) Thou/mm3 Hgb 13.7 (12.0-16.0) g/dL Hct 43.4 (36.0-46.0) % Plt Count 361 (140-440) Thou/mm3 BMP 04/15/25 09:03 Sodium 151 H Potassium 4.2 Chloride 109 H Carbon Dioxide 29.9 BUN 19 Creatinine 0.7 Glucose 112 H Calcium 9.9 Cardiac Enzymes 04/15/25 Range/Units 09:03 Troponin I 0.021 (0.0-0.045) ng/mL Liver Function 04/15/25 Range/Units 09:03 Total Bilirubin 0.8 (0.3-1.2) mg/dL AST 22 (0-34) U/L ALT 18 (10-49) U/L Alkaline Phosphatase 107 (46-116) U/L Albumin 5.1 H (3.4-4.8) gm/dL Assessment and Plan Additional Assessment & Plan Additional Plan: # Foreign body obstruction esophagus # Progressive dysphagia Plan Consent obtained for fiberoptic esophagogastroduodenoscopy biopsy therapeutic intervention under intravenous moderate sedation Will proceed with the procedure Other medical problems include Essential hypertension Bronchial asthma/COPD Thank you for the opportunity to participate in care of this patient
--- NOTE | 2025-04-15 17:04 | SUR.PHASEI ---
1700 patient is sleepy and arousable, breathing unlabored, s/p EGD by dr. Loza, report received from Gwendolyn JUAREZ.
--- NOTE | 2025-04-15 17:46 | SUR.PHASEI ---
1746 patient is awake, alert, breathing unlabored, able to tolerate ice chips with no nausea, vomiting or difficulty swallowing, report given to Aidan RN, patient transferred back to room 367
[2025-04-15] MEDS: RINGERS LACTATED 1000 ML 1,000 ML 75 ML IV (18:51)
[2025-04-15] MEDS: HEPARIN SOD INJ 5000 UNIT/ML VIAL SC (21:40)
[2025-04-15] MEDS: ACETAMINOPHEN 325 MG TABLET 650 MG PO (22:09)
[2025-04-16] VITALS: BP 146/78; PULSE 76; RESP 18; TEMP 36.4; O2SAT 95
[2025-04-16 04:00] VITALS: BP 135/77; PULSE 64; RESP 18; TEMP 36.2; O2SAT 96
[2025-04-16 05:57] LABS: Basophils # (Auto) 0.0 Thou/mm3 (0.0-0.2); Basophils % (Auto) 0 % (0-2.5); Eosinophils # (Auto) 0.0 Thou/mm3 (0.0-0.5); Eosinophils % (Auto) 0 % (0-10); Hematocrit 38.1 % (36.0-46.0); Hemoglobin 12.5 g/dL (12.0-16.0); Immature Granulocytes Auto 0.03 Thou/mm3 (0.00-0.00); Lymphocytes # (Auto) 1.5 Thou/mm3 (1.0-4.8); Lymphocytes % (Auto) 14 % (10-50); Mean Corpuscular HGB Conc 32.8 g/dl (31.0-37.0); Mean Corpuscular Hemoglobin 29.5 pg (25.0-35.0); Mean Corpuscular Volume 90 fL (80-100); Monocytes # (Auto) 0.3 Thou/mm3 (0.0-0.8); Monocytes % (Auto) 3 % (0-12); Neutrophils # (Auto) 8.6 Thou/mm3 (1.8-7.7); Neutrophils % (Auto) 82 % (37-80); Nucleated Red Blood Cell # 0.00 Thou/mm3 (0.00-0.00); Nucleated Red Blood Cell % 0 /100 WBC (0); Platelet Count 339 Thou/mm3 (140-440); RDW Standard Deviation 44.4 fL (36.4-46.3); Red Blood Count 4.24 Miln/mm3 (4.00-5.20); White Blood Count 10.5 Thou/mm3 (3.6-11.0)
[2025-04-16 06:53] LABS: Alanine Aminotransferase 16 U/L (10-49); Albumin, Serum 4.4 gm/dL (3.4-4.8); Albumin/Globulin Ratio 1.8 (1.2-2.2); Alkaline Phosphatase 91 U/L (46-116); Anion Gap 12 (7-16); Aspartate Amino Transferase 22 U/L (0-34); BUN/Creatinine Ratio 17 Ratio (12-20); Bilirubin,Total 0.6 mg/dL (0.3-1.2); Blood Urea Nitrogen 10 mg/dL (9-23); Calcium 9.6 mg/dL (8.3-10.6); Calcium (Corrected) 9.6 mg/dL (8.5-10.1); Carbon Dioxide 27.5 mMol/L (20.0-31.0); Cardiac Risk Estimate 2.8 RATIO (3.7-5.6); Chloride 105 mMol/L (98-107); Cholesterol 190 mg/dL (132-200); Creatinine (Component) 0.6 mg/dL (0.6-1.3); Estimated Creatinine Clearance 88.6 mL/min (>60); Globulin 2.5 gm/dL (2.3-3.5); Glucose 123 mg/dL (74-106); HDL Cholesterol 69 mg/dL (40-60); LDL Cholesterol,Calculated 105 mg/dL (0-130); Magnesium 1.9 mg/dL (1.6-2.6); Osmolality,Calculated 286 (275-295); Phosphorous 3.4 mg/dL (2.4-5.1); Potassium 3.7 mMol/L (3.4-5.1); Sodium 144 mMol/L (136-145); Thyroid Stimulating Hormone 0.29 uIU/mL (0.55-4.78); Total Protein 6.9 gm/dL (5.7-8.2); Triglycerides 80 mg/dL (30-150); eGFR > 60 See Note
[2025-04-16 07:56] VITALS: BP 133/76; PULSE 67; RESP 19; TEMP 36.4; O2SAT 95
[2025-04-16 08:53] VITALS: PULSE 82; RESP 20; O2SAT 97
[2025-04-16 12:00] VITALS: BP 144/76; PULSE 58; RESP 16; TEMP 36.1; O2SAT 95
--- NOTE | 2025-04-16 13:06 | ESDS_ITS ---
<Statement entered by Douglas Boles MD - 04/16/25 19:12> I saw and examined patient personally and supervised PGY 1 resident, Dr. Wray with formulating a discharge plan. I agree with the documentation as listed below. Plan of care discussed with Attending Dr. Alejandra Boles MD PGY 2 Disclaimer: This note was dictated by speech recognition. Minor errors in computer training specialist may be present due to voice recognition software. Planned Discharge Date 04/16/25 DS: Providers Provider Date of admission: 04/15/25 12:22 Primary care physician: Carolina Gutierrez PA-C Admitting Provider: Ranjeet Roberts MD Attending Provider on Admission: Ranjeet Roberts MD Consults: 04/15/25 11:45 Consult to Gastroenterology Stat Comment: Foreign body esophagus Consulting Provider: Katia Loza Attending Provider on DC: Ranjeet Roberts MD Discharging Provider: Ranjeet Roberts MD DS: Diagnosis Problem List Completed Was Problem List Reviewed/Reconciled?: Yes Hospital Course Hospital Course Hospital course: Summary: Silvia Grider 65F pmhx significant for HTN, hx of TIA, hiatial hernia and asthma who presents with 2 days of difficulty swallowing, admitted for dysphagia likely 2/2 esophageal stricture. Patient presents with 2 days of difficulty swallowing following eating a boiled egg and her vitamin D pill. Endorses unable to tolerate p.o. following, has not taken medications or eaten for the past 2 days. She has had esophageal strictures in the past status post dilation last being in about 2018. Had EGD done 2022 esophageal ring found by Dr. Loza broken down and at the time did need esophageal stricture dilatation however patient refused prior to procedure. GI was consulted on this admission and underwent EGD 04/15 and food was found in lower third of esophagus with successful removal, esophageal ulcers, gastritis, normal duodenum. However mucosal tear was found at the impaction of the foreign body at the GE junction with ulcerations and no endoscopic dilatation was done at the time. Per GI recommendations recommend repeat endoscopy 4 to 6 weeks for endoscopic dilatation of GE junction stricture and patient can be discharged home on omeprazole and to follow-up outpatient. Of note, on admission SBP was found to be 200s due to lack of taking irbesartan for the past two days, patient was given hydralazine and labetalol of which she developed flushing and tongue and eye swelling, likely former as patient does take albuterol. Following doses of IV medication, BP was stable. On discharge patient is hemodynamically stable, labs and vitals reviewed to be stable and patient is safe to be discharged home. Imaging: Soft tissue neck XR shows normal epiglottis, no opaque foreign body Discharge Recommendations: - Please take all medications as prescribed - START omeprazole 40 mg daily - Follow up with Dr. Loza for repeat EGD in the next 4-6 weeks for esophageal stricture dilatation - Continue all home medications except as above - Please follow up with your PCP within one week of discharge - If your symptoms worsen, please seek immediate medical attention and return to your nearest emergency room. - If you do not have a PCP, you may follow up at the [facility] at [address] [place] [address] [address] [address], Hospital Diagnoses: #Esophageal stricture at GE junction with #Foreign body (food) #Dysphagia #Hx of esophageal strictures s/p dilatation x2 (last ~2017) #Hx of esophageal ring s/p broken down 2022 #HTN urgency #Hx of HTN #Asthma Plan of care discussed with attending Dr. Roberts, and PGY-2 Dr. Boles. Radha Wray, DO Internal Medicine, PGY-1 Time Spent with Patient Time attestation: Total time spent providing and/or coordinating discharge services: 34 minutes Time spent: Greater than 30 minutes Exam Vital Signs Temp Pulse Resp BP Pulse Ox O2 Del Method O2 Flow Rate 97.0 F 58 L 16 144/76 H 95 Room Air 3 04/16/25 12:04/16/25 12:04/16/25 12:04/16/25 12:04/16/25 12:04/16/25 12:04/15/25 16:50 Narrative Exam GENERAL: AOx3, no acute distress HEENT: mucous membranes moist, bilateral sclera anicteric CARDIOVASCULAR: regular rate and rhythm, S1/S2 present, no murmurs appreciated PULMONARY: clear to auscultation bilaterally, no rales/rhonchi/wheezes, 2/6 murmur ABDOMINAL: soft, non-tender, non-distended, no rebound/guarding, bowel sounds present EXTREMITIES: no peripheral edema SKIN: warm and dry, intact, no rashes NEURO: CN II-XII grossly intact, no focal deficits, alert, following commands Discharge Plan Plan Patient Disposition: HOME (Self Care) Patient condition on transfer: Stable and Benefits outweigh risks Care Plan Goals: ? You have been started on omeprazole for your esophageal ulcer. Take as directed below. ? Continue the rest of your home medication as before ? Follow-up with GI, Dr. Loza within 2 weeks. He will also need to repeat endoscopy in 4 to 6 weeks to dilate your stricture. - Follow up with your primary care physician within 1 week of discharge. If you do not have a primary care physician, please follow up with the [facility] Residents clinic ([phone]) ? If you experience any new, worsening or persistent symptoms either call your primary doctor, or dial 911 or present to the emergency department. Prescriptions/Referrals Prescriptions/Med Rec: New omeprazole 40 mg capsule,delayed release(DR/EC) 40 mg PO QDAY 30 Days Qty: 30 1RF Continued irbesartan 150 mg tablet 150 mg PO DAILY Patient Comments: TAKE 1 TABLET BY MOUTH EVERY DAY albuterol sulfate 90 mcg/actuation HFA aerosol inhaler 2 puff INHALATION Q4HR PRN (Reason: Wheezing) Patient Comments: INHALE 2 PUFFS BY MOUTH EVERY 4 HOURS NEEDED FOR 30 DAYS fluticasone furoate-vilanterol 200-25 mcg/dose Blister With Device 1 inh INHALATION QDAY Referrals: aKtia Loza MD [Physician, Gastroenterology] Carolina Gutierrez PA-C [Primary Care Provider] Patient/Caregiver Discharge Instructions Education Materials: Upper Endoscopy Ch, ED Foreign Body Esophageal Rslv Print Language: Irish Stand Alone Forms: Chastity Award Info., Patient Portal Info Letter, DC from Surgery Discharge Order Discharge Orders: Discharge (Routine); Ordered 04/16/25 Ordered By: Douglas Boles Quality Discharge Quality Measures VTE prophylaxis Attestestation Attestation I have seen and examined the patient. I was physically present for the jean portions of the services provided including history, physical exam, diagnosis, treatment plans and orders. I agree with assessment and plan of care as documented by residents. Even though this this note was carefully revised there may still be minor errors in computer training specialist due to voice recognition software. Ranjeet Roberts MD
--- NOTE | 2025-04-16 13:44 | PC.NURSE ---
HOME MEDICATIONS GIVEN TO PT, BP AND INHALER.
--- NOTE | 2025-04-16 21:54 | PD.IMPROG ---
Documentation for date of: 04/16/25 Subjective Subjective Interval history: Late entry for the note No more difficulty swallowing Patient able to tolerate food Okay to discharge patient home for outpatient follow-up for an endoscopic dilatation in the future at the GE junction she should also go home on omeprazole Exam Vital Signs Temp Pulse Resp BP Pulse Ox O2 Del Method O2 Flow Rate 97.0 F 58 L 16 144/76 H 95 Room Air 3 04/16/25 12:00 04/16/25 12:00 04/16/25 12:00 04/16/25 12:00 04/16/25 12:00 04/16/25 12:00 04/15/25 16:50 Objective Labs 04/16/25 04:30 04/16/25 04:30 Labs: Laboratory Results - last 24 hr 04/16/25 04:30 WBC 10.5 RBC 4.24 Hgb 12.5 Hct 38.1 MCV 90 MCH 29.5 MCHC 32.8 RDW Std Deviation 44.4 Plt Count 339 Neut % (Auto) 82 H Lymph % (Auto) 14 [place] % (Auto) 3 Eos % (Auto) 0 Baso % (Auto) 0 Neut # (Auto) 8.6 H Lymph # (Auto) 1.5 [place] # (Auto) 0.3 Eos # (Auto) 0.0 Baso # (Auto) 0.0 Immature Gran # (Auto) 0.03 H Absolute Nucleated RBC 0.00 Immature Gran % 0 Nucleated RBC % 0 Sodium 144 Potassium 3.7 D Chloride 105 Carbon Dioxide 27.5 Anion Gap 12 BUN 10 Creatinine 0.6 Estim Creat Clear Calc 88.6 eGFR > 60 BUN/Creatinine Ratio 17 Glucose 123 H Calculated Osmolality 286 Calcium 9.6 Corrected Calcium 9.6 Phosphorus 3.4 Magnesium 1.9 Total Bilirubin 0.6 AST 22 ALT 16 Alkaline Phosphatase 91 Total Protein 6.9 Albumin 4.4 D Globulin 2.5 Albumin/Globulin Ratio 1.8 Triglycerides 80 Cholesterol 190 LDL Cholesterol, Calc 105 HDL Cholesterol 69 H Cholesterol/HDL Ratio 2.8 L TSH 0.29 L Impressions Impression: Foreign body obstruction GE junction status post endoscopic removal GE junction stricture GE junction ulceration Plan as in HPI Assessment & Plan A&P Narrative # Foreign body obstruction esophagus # Progressive dysphagia Plan Consent obtained for fiberoptic esophagogastroduodenoscopy biopsy therapeutic intervention under intravenous moderate sedation Will proceed with the procedure Other medical problems include Essential hypertension Bronchial asthma/COPD Thank you for the opportunity to participate in care of this patient Time Spent With Patient Time: Total time spent is greater than 50% in coordination of care (as documented) at patient's floor/unit and/or counseling patient:
== END 2025-04-16 13:45 | disposition home or self-care (01) ==
LOC: SERX 11:57 → SERHOLD 15:22 → S3SX 16:02 → SERHOLD 04-18 06:09
PROVIDERS: Specialist; Admitting Provider Student in an Organized Health Care Education/Training Program; Emergency Provider Nurse Practitioner Family; PCP Physician Assistant; Visit Provider Student in an Organized Health Care Education/Training Program
PROC: (CPT 43239; principal; 2025-04-15 14:45)
DX: T18.128A Food in esophagus causing other injury, initial encounter (principal); K22.10 Ulcer of esophagus without bleeding; K29.70 Gastritis, unspecified, without bleeding; X58.XXXA Exposure to other specified factors, initial encounter; I10 Essential (primary) hypertension; K22.2 Esophageal obstruction; I16.0 Hypertensive urgency; J45.909 Unspecified asthma, uncomplicated; Z86.73 Personal history of transient ischemic attack (TIA), and cerebral infarction without residual deficits
CPT/HCPCS: 43247; 36415; 80053; 80061; 83735; 83880; 84100; 84443; 84484; 85025; 93005; 94664; 96361; 96374; 96375; 99283; A4649; G0378; J0360; J1200; J1644; J1920; J2250; J2470; J2919; J3010; J3490; J7120; A9270